=== PATIENT | male | born 1965 | race African-American/Black ===

== ENCOUNTER 2016-04-02 09:49 | Emergency (ER) | payer OTHER ==
[2016-04-02] MEDS ORDERED: OXYCODONE-ACETAMINOPHEN 5-325 MG TABLET PO ONE (10:43)
--- NOTE | 2016-04-02 10:45 | ER Document Report ---
ED Medical Screen (RME) - General Chief Complaint: Shoulder Pain Stated Complaint: SHOULDER ARM Time seen by provider: 10:43 Mode of Arrival: Ambulatory Information source: Patient TRAVEL OUTSIDE OF THE [place] IN LAST 30 DAYS: No - HPI Patient complains to provider of: RIGHT SHOULDER PAIN Onset: Other - FRIDAY Onset/Duration: Sudden Context: STATES WOKE UP Friday WITH RIGHT SHOULDER PAIN, NO INJURY. PAINFUL TO MOVE SHOULDER Quality of pain: Sharp, Throbbing Severity: Severe Pain Level: 5 Associated Symptoms: Other - RIGHT SHOULDER PAIN. denies: Chest pain, Hurts to breath, Shortness of breath Exacerbated by: Movement Relieved by: Denies Similar symptoms previously: No Recently seen / treated by doctor: No - Related Data Smoking: Cigarettes Frequency of alcohol use: Heavy Drug Abuse: None Pertinent History: ARTHRITIS CHRONIC LOW BACK PAIN Allergies/Adverse Reactions: No Known Allergies Allergy (Verified 04/02/16 10:41) Past Medical History - Social History Frequency of alcohol use: daily Drug Abuse: None Physical Exam - Vital signs Vitals: Temp Pulse Resp BP Pulse Ox 98.9 F 93 18 140/83 H 98 04/02/16 10:05 04/02/16 10:05 04/02/16 10:05 04/02/16 10:05 04/02/16 10:05 Course - Vital Signs Vital signs: Temp Pulse Resp BP Pulse Ox 98.9 F 93 18 140/83 H 98 04/02/16 10:05 04/02/16 10:05 04/02/16 10:05 04/02/16 10:05 04/02/16 10:05
--- NOTE | 2016-04-02 11:49 | ER Document Report ---
Addendum entered and electronically signed by ELTON SILVA FNP 12:22: Discharge - Discharge Clinical Impression: Strain of right shoulder Qualifiers: Encounter type: initial encounter Qualified Code(s): S46.911A - Strain of unspecified muscle, fascia and tendon at shoulder and upper arm level, right arm , initial encounter Disposition: HOME, SELF-CARE Additional Instructions: Sprain Your injury is a sprain. A sprain results from stretching or tearing of the ligaments, usually from a twisting injury. The ligaments will require time and protection in order to heal properly. Many sprains are quite disabling and should be taken seriously. The usual initial treatment of sprains is cold packs, elevation, and rest of the injured area. Your physician has assessed the seriousness of your ligament injury, and has outlined a treatment plan. Understand that this treatment may change, depending on how you progress. If a re-examination was recommended, it is important that you follow up as instructed. Call the doctor any time if there is severe pain, numbness, or loss of function in the injured area. Warm compresses 4-5 times a day. Follow-up with private doctor in 1 to 2 days for final radiology readings please return to the emergency room for any change worsening condition. Follow up with private M.D. for all other routine health care needs. Prescriptions: Methocarbamol [Robaxin 750 mg Tablet] 750 mg PO Q4 #40 tablet Naproxen Sodium [Naproxen Sodium ER] 500 mg PO Q12 PRN #20 tablet.sa PRN Reason: Referrals: ISAI PEREZ MD [Primary Care Provider] - Follow up as needed Original Note: ED Extremity Problem, Upper - General Chief Complaint: Shoulder Pain Stated Complaint: SHOULDER ARM Time seen by provider: 11:47 Mode of Arrival: Ambulatory Information source: Patient TRAVEL OUTSIDE OF THE [place] IN LAST 30 DAYS: No - HPI Patient complains to provider of: Pain, Right, Shoulder - This 50-year-old male who stated he had right shoulder pain after sleeping on it last night. He thought that his shoulder was out of joint. X-ray confirmation indicates otherwise. The distal pulses Recent injury: No Where: Home Quality of pain: Achy Pain Level: 2 Associated symptoms: None Exacerbated by: Movement - Related Data Allergies/Adverse Reactions: No Known Allergies Allergy (Verified 04/02/16 10:41) Past Medical History - General Information source: Patient - Social History Smoking Status: Current Every Day Smoker Cigarette use (# per day): Yes - 1/3 pack day Chew tobacco use (# tins/day): No Frequency of alcohol use: Heavy Drug Abuse: None Family History: Reviewed & Not Pertinent Patient has suicidal ideation: No Patient has homicidal ideation: No - Past Medical History Cardiac Medical History: Reports: Hx Hypertension Musculoskeltal Medical History: Reports Hx Arthritis Review of Systems - Review of Systems Constitutional: No symptoms reported EENT: No symptoms reported Cardiovascular: No symptoms reported Respiratory: No symptoms reported Gastrointestinal: No symptoms reported Genitourinary: No symptoms reported Male Genitourinary: No symptoms reported Musculoskeletal: Other - Right shoulder pain. denies: Muscle stiffness, Deformity Skin: No symptoms reported Hematologic/Lymphatic: No symptoms reported Neurological/Psychological: No symptoms reported Physical Exam - Vital signs Vitals: Temp Pulse Resp BP Pulse Ox 98.9 F 93 18 140/83 H 98 04/02/16 10:05 04/02/16 10:05 04/02/16 10:05 04/02/16 10:05 04/02/16 10:05 Interpretation: Normal - General General appearance: Appears well, Alert - HEENT Head: Normocephalic, Atraumatic Eyes: Normal Pupils: PERRL - Respiratory Respiratory status: No respiratory distress Chest status: Nontender Breath sounds: Normal Chest palpation: Normal - Cardiovascular Rhythm: Regular Heart sounds: Normal auscultation Murmur: No - Abdominal Inspection: Normal Distension: No distension Bowel sounds: Normal Tenderness: Nontender Organomegaly: No organomegaly - Back Back: Normal, Nontender - Extremities General upper extremity: Normal inspection, Nontender, Normal color, Normal ROM , Normal temperature General lower extremity: Normal inspection, Nontender, Normal color, Normal ROM , Normal temperature, Normal weight bearing. No: Liam's sign Shoulder: Tender, Limited ROM, Other - Patient states he has right shoulder tenderness anteriorly. No palpable deformity good distal pulses x-ray confirmation the joint is in place please see radiology interpretation. - Neurological Neuro grossly intact: Yes Cognition: Normal Orientation: AAOx4 [place] Coma Scale Eye Opening: Spontaneous [place] Coma Scale Verbal: Oriented [place] Coma Scale Motor: Obeys Commands [place]z Coma Scale Total: 15 Speech: Normal Motor strength normal: LUE, RUE, LLE, RLE Sensory: Normal - Psychological Associated symptoms: Normal affect, Normal mood - Skin Skin Temperature: Warm Skin Moisture: Dry Skin Color: Normal Course - Vital Signs Vital signs: Temp Pulse Resp BP Pulse Ox 98.9 F 93 18 140/83 H 98 04/02/16 10:05 04/02/16 10:05 04/02/16 10:05 04/02/16 10:05 04/02/16 10:05 Discharge - Discharge Clinical Impression: Right shoulder strain Disposition: HOME, SELF-CARE Additional Instructions: Sprain Your injury is a sprain. A sprain results from stretching or tearing of the ligaments, usually from a twisting injury. The ligaments will require time and protection in order to heal properly. Many sprains are quite disabling and should be taken seriously. The usual initial treatment of sprains is cold packs, elevation, and rest of the injured area. Your physician has assessed the seriousness of your ligament injury, and has outlined a treatment plan. Understand that this treatment may change, depending on how you progress. If a re-examination was recommended, it is important that you follow up as instructed. Call the doctor any time if there is severe pain, numbness, or loss of function in the injured area. Warm compresses 4-5 times a day. Follow-up with private doctor in 1 to 2 days for final radiology readings please return to the emergency room for any change worsening condition. Follow up with private M.D. for all other routine health care needs. Prescriptions: Methocarbamol [Robaxin 750 mg Tablet] 750 mg PO Q4 #40 tablet Naproxen Sodium [Naproxen Sodium ER] 500 mg PO Q12 PRN #20 tablet.sa PRN Reason:
[2016-04-02 12:10] VITALS: BP 132/78
== END 2016-04-02 12:10 | disposition home or self-care (01) ==
LOC: ER 09:49
DX: S46.911A Strain of unspecified muscle, fascia and tendon at shoulder and upper arm level, right arm, initial encounter (principal); M25.511 Pain in right shoulder; X58.XXXA Exposure to other specified factors, initial encounter; F17.210 Nicotine dependence, cigarettes, uncomplicated; I10 Essential (primary) hypertension
CPT/HCPCS: 99283

== ENCOUNTER 2019-10-13 13:02 | Emergency (ER) | payer OTHER ==
--- NOTE | 2019-10-13 13:28 | ER Document Report ---
ED Medical Screen (RME) - General Chief Complaint: Tremor Stated Complaint: MUSCLE CRAMPS Time Seen by Provider: 10/13/19 13:11 Primary Care Provider: ISAI PEREZ MD [Primary Care Provider] - Follow up as needed Mode of Arrival: Wheelchair Information source: Patient Notes: 54-year-old male presented to ED for muscle cramps all over that started yesterday and got worse today. He states the pain is much worse today. Smokes 1/3 pack a day drinks weekly no drugs. Works with [employer] lives with his family. Denies any past medical history. I have given him 2 glasses of water in order IV fluids and lab work in the ED T PET area. Patient is alert oriented able to answer all questions appropriately. I have greeted and performed a rapid initial assessment of this patient. A comprehensive ED assessment and evaluation of the patient, analysis of test results and completion of medical decision making process will be conducted by an additional ED providers. TRAVEL OUTSIDE OF THE [place] IN LAST 30 DAYS: No - Related Data Allergies/Adverse Reactions: No Known Allergies Allergy (Verified 04/02/16 10:41) Past Medical History - Past Medical History Cardiac Medical History: Reports: Hx Hypertension Musculoskeltal Medical History: Reports Hx Arthritis Physical Exam - Vital signs Vitals: Temp Pulse Resp BP Pulse Ox 97.6 F 94 16 120/59 L 96 10/13/19 13:12 10/13/19 13:12 10/13/19 13:12 10/13/19 13:12 10/13/19 13:12 Course - Vital Signs Vital signs: Temp Pulse Resp BP Pulse Ox 97.6 F 94 16 120/59 L 96 10/13/19 13:12 10/13/19 13:12 10/13/19 13:12 10/13/19 13:12 10/13/19 13:12 Doctor's Discharge - Discharge Referrals: ISAI PEREZ MD [Primary Care Provider] - Follow up as needed
[2019-10-13 13:51] LABS: ABSOLUTE BASOPHILS # (AUTO) 0.1 10^3/uL (0.0-0.2); ABSOLUTE EOSINOPHILS # (AUTO) 0.1 10^3/uL (0.0-0.6); ABSOLUTE LYMPHOCYTES (AUTO) 1.8 10^3/uL (0.5-4.7); ABSOLUTE MONOCYTES (AUTO) 0.7 10^3/uL (0.1-1.4); EOSINOPHILS % (AUTO) 0.6 % (0-6); HEMATOCRIT 46.6 % (37.9-51.0); HEMOGLOBIN 15.7 g/dL (13.5-17.0); LYMPHOCYTES % (AUTO) 17.2 % (13-45); MEAN CORPUSCULAR HEMOGLOBIN 31.8 pg (27.0-33.4); MEAN CORPUSCULAR HGB CONC 33.7 g/dL (32.0-36.0); MEAN CORPUSCULAR VOLUME 94 fl (80-97); MONOCYTES % (AUTO) 6.4 % (3-13); PLATELET COUNT 248 10^3/uL (150-450); RED BLOOD COUNT 4.93 10^6/uL (4.35-5.55); RED CELL DISTRIBUTION WIDTH 13.8 % (11.5-14.0); SEGMENTED NEUTROPHILS % (AUTO) 74.8 % (42-78); TOTAL CELLS COUNTED % (AUTO) 100 %; WHITE BLOOD COUNT 10.7 10^3/uL (4.0-10.5)
[2019-10-13 14:08] LABS: ALBUMIN 5.4 g/dL (3.5-5.0); ALKALINE PHOSPHATASE 53 U/L (38-126); ANION GAP 17 (5-19); ASPARTATE AMINO TRANSFERASE 43 U/L (17-59); BILIRUBIN,DIRECT 0.1 mg/dL (0.0-0.4); BILIRUBIN,TOTAL 1.1 mg/dL (0.2-1.3); BLOOD UREA NITROGEN 41 mg/dL (7-20); CARBON DIOXIDE 24 mmol/L (22-30); CHLORIDE 98 mmol/L (98-107); CREATINE KINASE 567 U/L (55-170); GLUCOSE 103 mg/dL (75-110); POTASSIUM 4.4 mmol/L (3.6-5.0); TOTAL PROTEIN 8.8 g/dL (6.3-8.2)
[2019-10-13] MEDS: NORMAL SALINE 1000 ML 1,000 ML IV PRN ×2 (14:36→16:04)
[2019-10-13] MEDS ORDERED: RINGERS SOLUTION,LACTATED 1,000 ML IV ONE (15:36)
--- NOTE | 2019-10-13 15:38 | ER Document Report ---
ED General - General Chief Complaint: Pain All Over Stated Complaint: MUSCLE CRAMPS Time Seen by Provider: 10/13/19 15:24 Primary Care Provider: ISAI PEREZ MD [NO LOCAL MD] - 10/15/19 Mode of Arrival: Wheelchair Information source: Patient Notes: Patient presents stating that he had muscle cramps yesterday while working out in the heat. Patient states the cramping worsened today. Patient reports nausea vomiting x1 episode. Patient presently denies any nausea at this time. TRAVEL OUTSIDE OF THE [place] IN LAST 30 DAYS: No - HPI Onset: Yesterday Onset/Duration: Worse Quality of pain: Cramping Pain Level: 3 Associated symptoms: Nausea, Vomiting. denies: Chest pain, Nonproductive cough, Productive cough, Diarrhea, Fever Exacerbated by: Denies Relieved by: Denies Similar symptoms previously: No Recently seen / treated by doctor: No - Related Data Allergies/Adverse Reactions: No Known Allergies Allergy (Verified 04/02/16 10:41) Past Medical History - General Information source: Patient - Social History Smoking Status: Current Every Day Smoker Chew tobacco use (# tins/day): No Frequency of alcohol use: Occasional Drug Abuse: None Occupation: [employer] Lives with: Family Family History: Reviewed & Not Pertinent Musculoskeletal Medical History: Reports Hx Arthritis Past Surgical History: Reports: Hx Orthopedic Surgery Review of Systems - Review of Systems Constitutional: No symptoms reported. denies: Fever EENT: No symptoms reported Cardiovascular: No symptoms reported. denies: Chest pain Respiratory: No symptoms reported Gastrointestinal: Nausea, Vomiting. denies: Abdominal pain, Diarrhea Genitourinary: No symptoms reported Male Genitourinary: No symptoms reported Musculoskeletal: Muscle pain Skin: No symptoms reported Hematologic/Lymphatic: No symptoms reported Neurological/Psychological: No symptoms reported Physical Exam - Vital signs Vitals: Temp Pulse Resp BP Pulse Ox 97.6 F 94 16 120/59 L 96 10/13/19 13:12 10/13/19 13:12 10/13/19 13:12 10/13/19 13:12 10/13/19 13:12 - General General appearance: Appears well, Alert In distress: None - HEENT Head: Normocephalic, Atraumatic Eyes: Normal Conjunctiva: Normal Nasal: Normal Mouth/Lips: Normal Mucous membranes: Normal Pharynx: Normal Neck: Normal, Supple. No: Lymphadenopathy - Respiratory Respiratory status: No respiratory distress Chest status: Nontender Breath sounds: Normal. No: Rales, Rhonchi, Stridor, Wheezing Chest palpation: Normal - Cardiovascular Rhythm: Regular Heart sounds: S1 appreciated, S2 appreciated Murmur: No - Abdominal Inspection: Normal Distension: No distension Bowel sounds: Normal Tenderness: Nontender Organomegaly: No organomegaly - Back Back: Normal, Nontender. No: CVA tenderness - Extremities General upper extremity: Normal inspection, Normal strength General lower extremity: Normal inspection, Normal strength - Neurological Neuro grossly intact: Yes Cognition: Normal Orientation: AAOx4 [place] Coma Scale Eye Opening: Spontaneous [place] Coma Scale Verbal: Oriented [place] Coma Scale Motor: Obeys Commands Almaz Coma Scale Total: 15 - Psychological Associated symptoms: Normal affect, Normal mood - Skin Skin Temperature: Warm Skin Moisture: Dry Skin Color: Normal Course - Re-evaluation Re-evalutation: 10/13/19 19:20 Patient states that his cramping has resolved as well as the nausea and vomiting. Patient reports feeling much better. Discussed with patient plan to consult with hospitalist for consideration for admission. Patient is agreeable with admission or discharge at this time. 10/13/19 19:[address] Campos regarding patient presentation and diagnostic evaluation. Advises having patient stay out of work for the remainder of the week and increase fluids as much as 3 to 4 L a day. Recommends having labs rechecked this Friday or at the latest Friday. Feels that patient can likely be discharged safely at home if he remains out of the heat and avoids work and increase his fluids as instructed. Discussed this plan of care with patient, patient is agreeable with discharge plan of care. Patient advised that if he cannot follow-up with his primary doctor by Friday of this week that he should return here for recheck to have his labs repeated. Patient encouraged to in crease oral fluid hydration and to avoid exposure to the heat as well as not to return to work until cleared to do so. - Vital Signs Vital signs: Temp Pulse Resp BP Pulse Ox 98.1 F 92 18 131/75 H 99 10/13/19 20:00 10/13/19 20:00 10/13/19 20:00 10/13/19 20:00 10/13/19 20:00 - Laboratory Result Diagrams: 10/13/19 13:25 10/13/19 18:06 Laboratory results interpreted by me: 10/13/19 10/13/19 10/13/19 13:25 13:25 16:47 WBC 10.7 H Sodium BUN 41 H Creatinine 4.19 H Est GFR ( Amer) 18 L Est GFR (MDRD) Non-Af 15 L Calcium 11.0 H Magnesium 2.9 H Creatine Kinase 567 H Total Protein 8.8 H Albumin 5.4 H Urine Ketones TRACE H Urine Blood MODERATE H 10/13/19 18:06 WBC Sodium 136.3 L BUN 32 H Creatinine 2.27 H Est GFR ( Amer) 36 L Est GFR (MDRD) Non-Af 30 L Calcium Magnesium Creatine Kinase 668 H Total Protein Albumin Urine Ketones Urine Blood 10/13/19 21:48 Labs- All tests 24 hr 10/13/19 10/13/19 10/13/19 13:25 13:25 16:47 WBC 10.7 H RBC 4.93 Hgb 15.7 Hct 46.6 MCV 94 MCH 31.8 MCHC 33.7 RDW 13.8 Plt Count 248 Lymph % (Auto) 17.2 Wilkin % (Auto) 6.4 Eos % (Auto) 0.6 Baso % (Auto) 1.0 Absolute Neuts (auto) 8.0 Absolute Lymphs (auto) 1.8 Absolute Monos (auto) 0.7 Absolute Eos (auto) 0.1 Absolute Basos (auto) 0.1 Seg Neutrophils % 74.8 Sodium 138.5 Potassium 4.4 Chloride 98 Carbon Dioxide 24 Anion Gap 17 BUN 41 H Creatinine 4.19 H Est GFR ( Amer) 18 L Est GFR (MDRD) Non-Af 15 L Glucose 103 Calcium 11.0 H Magnesium 2.9 H Total Bilirubin 1.1 Direct Bilirubin 0.1 Neonat Total Bilirubin Not Reportable Neonat Direct Bilirubin Not Reportable Neonat Indirect Bili Not Reportable AST 43 ALT 26 Alkaline Phosphatase 53 Creatine Kinase 567 H Total Protein 8.8 H Albumin 5.4 H Urine Color COLORLESS Urine Appearance CLEAR Urine pH 5.0 Ur Specific [place] 1.005 Urine Protein NEGATIVE Urine Glucose (UA) NEGATIVE Urine Ketones TRACE H Urine Blood MODERATE H Urine Nitrite NEGATIVE Urine Bilirubin NEGATIVE Urine Urobilinogen NEGATIVE Ur Leukocyte Esterase NEGATIVE Urine WBC (Auto) 0 Urine RBC (Auto) 0 Urine Bacteria (Auto) TRACE Urine Mucus (Auto) RARE Urine Ascorbic Acid NEGATIVE Urine Opiates Screen Urine Methadone Screen Ur Barbiturates Screen Ur Phencyclidine Scrn Ur Amphetamines Screen U Benzodiazepines Scrn Urine Cocaine Screen U Marijuana (THC) Screen 10/13/19 10/13/19 16:47 18:06 WBC RBC Hgb Hct MCV MCH MCHC RDW Plt Count Lymph % (Auto) Wilkin % (Auto) Eos % (Auto) Baso % (Auto) Absolute Neuts (auto) Absolute Lymphs (auto) Absolute Monos (auto) Absolute Eos (auto) Absolute Basos (auto) Seg Neutrophils % Sodium 136.3 L Potassium 4.4 Chloride 104 Carbon Dioxide 24 Anion Gap 8 BUN 32 H Creatinine 2.27 H Est GFR ( Amer) 36 L Est GFR (MDRD) Non-Af 30 L Glucose 97 Calcium 9.4 Magnesium Total Bilirubin Direct Bilirubin Neonat Total Bilirubin Neonat Direct Bilirubin Neonat Indirect Bili AST ALT Alkaline Phosphatase Creatine Kinase 668 H Total Protein Albumin Urine Color Urine Appearance Urine pH Ur Specific [place] Urine Protein Urine Glucose (UA) Urine Ketones Urine Blood Urine Nitrite Urine Bilirubin Urine Urobilinogen Ur Leukocyte Esterase Urine WBC (Auto) Urine RBC (Auto) Urine Bacteria (Auto) Urine Mucus (Auto) Urine Ascorbic Acid Urine Opiates Screen NEGATIVE Urine Methadone Screen NEGATIVE Ur Barbiturates Screen NEGATIVE Ur Phencyclidine Scrn NEGATIVE Ur Amphetamines Screen NEGATIVE U Benzodiazepines Scrn NEGATIVE Urine Cocaine Screen NEGATIVE U Marijuana (THC) Screen UNCONFIRMED POSITIVE Discharge - Discharge Clinical Impression: Acute kidney injury Heat exhaustion Qualifiers: Encounter type: initial encounter Qualified Code(s): T67.5XXA - Heat exhaustion, unspecified, initial encounter Nausea and vomiting Qualifiers: Vomiting type: unspecified Vomiting Intractability: non-intractable Qualified Code(s): R11.2 - Nausea with vomiting, unspecified Condition: Stable Disposition: HOME, SELF-CARE Instructions: Heat Exhaustion ([facility]), Intravenous (IV) Fluids ([facility]), Kidney Injury ([facility]), Vomiting ([facility]) Additional Instructions: Increase oral fluid hydration. You should aim to drink at least 3 to 4 L of fluids a day. Do not return to work until cleared to do so Avoid exposure to the heat, stay indoors in air conditioning You should follow-up with your primary doctor by Friday of this week to have your lab work rechecked. If you cannot get into see your doctor, return here to the emergency department on Friday to have your labs redrawn. Return immediately for any worsening of his symptoms such as muscle cramps, nausea, vomiting or any concerning new symptoms Forms: Return to Work Referrals: ISAI PEREZ MD [NO LOCAL MD] - 10/15/19
[2019-10-13 17:18] LABS: APPEARANCE,URINE CLEAR; BILIRUBIN,URINE NEGATIVE (NEGATIVE); COLOR,URINE COLORLESS; GLUCOSE, URINE NEGATIVE (NEGATIVE); KETONES,URINE TRACE mg/dL (NEGATIVE); LEUKOCYTE ESTERASE,URINE NEGATIVE (NEGATIVE); NITRITE,URINE NEGATIVE (NEGATIVE); PROTEIN,URINE NEGATIVE (NEGATIVE); URINE SPECIFIC GRAVITY 1.005; UROBILINOGEN,URINE NEGATIVE mg/dL (<2.0)
[2019-10-13 17:28] LABS: URINE AMPHETAMINES SCREEN NEGATIVE; URINE BARBITURATES SCREEN NEGATIVE; URINE BENZODIAZEPINES SCREEN NEGATIVE; URINE COCAINE SCREEN NEGATIVE; URINE METHADONE SCREEN NEGATIVE; URINE PHENCYCLIDINE SCREEN NEGATIVE
[2019-10-13 17:31] LABS: URINE MARIJUANA (THC) SCREEN UNCONFIRMED POSITIVE
[2019-10-13 18:39] LABS: ANION GAP 8 (5-19); BLOOD UREA NITROGEN 32 mg/dL (7-20); CALCIUM 9.4 mg/dL (8.4-10.2); CARBON DIOXIDE 24 mmol/L (22-30); CHLORIDE 104 mmol/L (98-107); CREATINE KINASE 668 U/L (55-170); GLUCOSE 97 mg/dL (75-110); POTASSIUM 4.4 mmol/L (3.6-5.0)
[2019-10-13 20:20] VITALS: BP 131/75
== END 2019-10-13 20:15 | disposition home or self-care (01) ==
LOC: ER 13:02
DX: T67.5XXA Heat exhaustion, unspecified, initial encounter (principal); M79.10 Myalgia, unspecified site; R11.2 Nausea with vomiting, unspecified; N17.9 Acute kidney failure, unspecified; F17.200 Nicotine dependence, unspecified, uncomplicated
CPT/HCPCS: 99284; 96360; 96361; 36415; 87086; 82550; 83735; 85025; 80053; 81001; 80307; J7030; J7120; 87088